=== PATIENT | female | born 1960 | race Asian ===

== ENCOUNTER 2022-07-19 16:19 | Inpatient (IN) | payer MEDICAID ==
[~2022-07-19] VITALS: Ht 147.3 cm; Wt 64.0 kg
[2022-07-19] MEDS ORDERED: MIDO2.5T PO (16:55)
[2022-07-19] MEDS ORDERED: MULT-447 PO (16:55)
[2022-07-19] MEDS ORDERED: CETI-108 PO (16:55)
[2022-07-19] MEDS ORDERED: FLUT16SP (16:55)
[2022-07-19] MEDS ORDERED: FLUT1BLS12 IH (16:55)
[2022-07-19] MEDS ORDERED: ALBU8.5H8 IH (16:55)
[2022-07-19] MEDS ORDERED: FENO160T PO (16:55)
[2022-07-19] MEDS ORDERED: OMEP20CA15 PO (16:55)
[2022-07-19] MEDS ORDERED: TORS20TA3 PO (16:55)
[2022-07-19] MEDS ORDERED: COLC0.6C3 PO (16:55)
[2022-07-19] MEDS ORDERED: SPIR25TA6 PO (16:55)
[2022-07-19] MEDS ORDERED: ALLO100T PO (16:55)
[2022-07-19] MEDS ORDERED: MONT10TA22 PO (16:55)
--- NOTE | 2022-07-19 16:55 | NUR ---
ADMISSION NOTE PATIENT ARRIVED VIA GURNEY ACCOMPANIED BY 2 EMT. REPORT GIVEN BY PATRICK MCKEON. PATIENT A/O X4, ABLE TO MAKE NEEDS KNOWN. CONTINENT: BRP. PATIENT ORIENTED TO ROOM AND CALL LIGHT. ON 2L NC, NO S/S OF SOB OR DISTRESS. IV ACCESS ON LAC , INTACT AND PATENT AND FLUSHING WELL. SKIN INTACT. BLE SWELLING, PITTING 2 AN L BREAST BRUISE. VS TAKEN AND RECORDED IN CHART. LUNG CLEAR AND BOWEL SOUNDS ACTIVE. NO PAIN AT THIS TIME. DR. HARDIN MADE AWARE OF PT ARRIVAL. FALL AND SAFETY PRECAUTION IN PLACE BED LOCKED AND AT THE LOWEST POSITION, SRx2, CALL LIGHT WITHIN REACH.
[2022-07-19] MEDS ORDERED: Z GUARD REMEDY 4 OZ OINT TP PRN (18:00)
[2022-07-19] MEDS ORDERED: ACETAMINOPHEN 325 MG TABLET PO PRN (18:00)
[2022-07-19] MEDS ORDERED: ONDANSETRON HCL/PF 4 MG/2 ML VIAL IVP PRN (18:00)
[2022-07-19] MEDS: ENOXAPARIN SODIUM 30 MG/0.3 ML DISP.SYRIN SQ SCH (18:00)
[2022-07-19] MEDS ORDERED: MAG HYDROX/AL HYDROX/SIMETH 30 ML UDC PO PRN (18:00)
[2022-07-19] MEDS ORDERED: FLUTICASONE PROPIONATE 16 GM BOTTLE NS PRN (18:00)
[2022-07-19] MEDS ORDERED: MAGNESIUM HYDROXIDE 30 ML UDC PO PRN (18:00)
--- NOTE | 2022-07-19 18:00 | NUR ---
MEDICATION NOTE HELD ENOXOPARIN, WAITING LAB VALUES
[2022-07-19 18:33] LABS: EOSINOPHILS % (AUTO) 0.9 % (0.0-6.0); HEMOGLOBIN 14.6 g/dL (11.5-14.8)
[2022-07-19 18:41] LABS: BASOPHILS # (AUTO) 0.2 K/uL (0.0-0.2); BASOPHILS % (AUTO) 0.8 % (0.0-2.0); HEMATOCRIT 47 % (33-45); LYMPHOCYTES # (AUTO) 2.3 K/uL (0.8-4.8); LYMPHOCYTES % (AUTO) 8.6 % (20.0-44.0); MEAN CORPUSCULAR HGB CONC 31 g/dl (31.0-36.0); MEAN CORPUSCULAR VOLUME 82 fL (82-100); MONOCYTES # (AUTO) 1.4 K/uL (0.1-1.30); NEUTROPHILS % (AUTO) 84.7 % (43.0-81.0); PLATELET COUNT (AUTO) 147 K/uL (150-450); RED BLOOD CELL COUNT(AUTO) 5.67 MIL/uL (4.0-5.2); WHITE BLOOD COUNT (AUTO) 27.2 K/uL (4.3-11.0)
[2022-07-19 18:55] VITALS: BP 92/69
[2022-07-19 19:07] LABS: BAND % (MANUAL) 4 % (0.0-5.0); LYMPHOCYTES % (MANUAL) 7 % (16-48); METAMYELOCYTES % 2 % (0-0); MONOCYTES % (MANUAL) 6 % (0-11.0); NEUTROPHILS % (MANUAL) 80 (42-76); REACTIVE LYMPHOCYTES 1 % (0-0)
[2022-07-19 19:08] LABS: ALANINE AMINOTRANSFERASE 32 U/L (12-78); ALBUMIN 3.9 g/dL (3.4-5.0); ALKALINE PHOSPHATASE 65 U/L (46-116); ASPARTATE AMINOTRANSFERASE 42 U/L (15-37); BILIRUBIN,DIRECT 0.9 mg/dL (0.0-0.2); BILIRUBIN,TOTAL 1.6 mg/dL (0.2-1.0); CARBON DIOXIDE 31 mmol/L (21-32); CHLORIDE 106 mmol/L (98-107); CREATININE 1.3 mg/dL (0.6-1.3); GLUCOSE 100 mg/dL (74-106); MAGNESIUM 2.6 mg/dL (1.8-2.4); PHOSPHORUS 4.5 mg/dL (2.5-4.9); POTASSIUM 4.2 mmol/L (3.5-5.1); SODIUM SERUM 143 mmol/L (136-145); UREA NITROGEN, BLOOD 59 mg/dL (7-18)
[2022-07-19 20:00] VITALS: BP 101/72
--- NOTE | 2022-07-19 20:00 | NUR ---
CLOSING NOTE PATIENT IN BED RESTING A/O X4, ON NC 2L. NO S/S OF SON OR DISTRESS. IV ACCESS LFA G 20 REMAINS INTACT AND PATIENT, SL. NO PAIN AT THIS TIME. FALL AND SAFETY PRECAUTION IN PLACE BED LOCKED AND AT THE LOWEST POSITION, SRx2, CALL LIGHT WITHIN REACH.
--- NOTE | 2022-07-19 20:00 | NUR ---
TELE DAY CARE ASSISTANT INITIAL NOTES RECEIVED REPORT FROM AM NURSE RISSA AND SEEN PT IN BED ON SITTING POSITION WITH SIDE RAILS X2 UP , AWARE WHERE SHE AT, SKIN WARM AND DRY TO TOUCH, EDEMA NOTED NO HER BLE . NO SIGNS OF ANY ACUTE DISTRESS NOTED. PT ON O2 AT 2 LITERS VIA NASAL CANULA. SHE ALSO ON TELE SINUS TACH PER MONITOR. KEPT HER WARM AND COMFORTABLE AT ALL TIMES. ENCOURAGE PT TO USE THE CALL LIGHT SYSTEM IF SHE NEEDS SOME HELP OR NEEDS THE NURSE. WILL CONTINUE MONITORING. CALL LIGHT AT REACH.
[2022-07-19] MEDS ORDERED: ALBUTEROL FS 2.5 MG/3 ML VIAL.NEB NEB PRN (20:30)
[2022-07-19] MEDS ORDERED: FUROSEMIDE 40 MG/4 ML VIAL IV SCH (21:00)
[2022-07-19] MEDS: MONTELUKAST SODIUM (10MG) 10 MG TABLET PO SCH (22:05)
[2022-07-20] VITALS: BP 89/64
--- NOTE | 2022-07-20 | NUR ---
TELE CRABBER NOTES PT SLEEPING AT THIS TIME RESPIRATION EVEN AND NON-LABORED NOT IN ANY ACUTE DISTRESS NOTED. TELE SINUS RHYTHM PER MONITOR. WILL CONTINUE MONITORING.
[2022-07-20] MEDS: ALBUTEROL FS 2.5 MG/3 ML VIAL.NEB NEB SCH ×5 (01:44→20:41)
[2022-07-20 04:00] VITALS: BP 96/69
[2022-07-20 07:00] VITALS: BP 89/63
--- NOTE | 2022-07-20 07:00 | NUR ---
TELE VALIDATION SCIENTIST CLOSING NOTES PT RESTING COMFORTABLY IN BED WITHOUT ANY DISCOMFORT . STABLE THROUGHOUT THE NIGHT STILL HAVE EDEMA BUT PATIENT SAID SHE FEEL BETTER . SHE STILL WITH O2 AT 2 LITERS VIA NASAL CANULA. TELE SINUS RHYTHM PER MONITOR. BED IN LOW AND LOCK IN POSITION WITH SIDE RAILS X2 UP . PLACE CALL LIGHT AT REACH. WILL ENDORSE TO AM NURSE FOR CONTINUITY OF CARE.
--- NOTE | 2022-07-20 07:20 | NUR ---
ms rn received on bed, awake,alert,oriented x4,not in any form of distress, respirations even and unlabored,no sob noted, lungs are both diminish, abdomen soft,positive bowel sounds,denies pian at this time, o2 2 liters, saturating well,denies pain at this time, all needs attended.
[2022-07-20 07:21] LABS: BASOPHILS # (AUTO) 0.3 K/uL (0.0-0.2); BASOPHILS % (AUTO) 1.4 % (0.0-2.0); EOSINOPHILS % (AUTO) 1.1 % (0.0-6.0); HEMATOCRIT 44 % (33-45); HEMOGLOBIN 13.6 g/dL (11.5-14.8); LYMPHOCYTES # (AUTO) 1.9 K/uL (0.8-4.8); MEAN CORPUSCULAR HGB CONC 31 g/dl (31.0-36.0); MEAN CORPUSCULAR VOLUME 83 fL (82-100); MONOCYTES # (AUTO) 1.2 K/uL (0.1-1.30); NEUTROPHILS # (AUTO) 20.6 K/uL (1.8-8.9); NEUTROPHILS % (AUTO) 84.5 % (43.0-81.0); PLATELET COUNT (AUTO) 135 K/uL (150-450); RED BLOOD CELL COUNT(AUTO) 5.38 MIL/uL (4.0-5.2); WHITE BLOOD COUNT (AUTO) 24.4 K/uL (4.3-11.0)
[2022-07-20 08:40] LABS: CALCIUM, SERUM 9.5 mg/dL (8.5-10.1); CREATININE 1.4 mg/dL (0.6-1.3); MAGNESIUM 2.7 mg/dL (1.8-2.4); PHOSPHORUS 5.2 mg/dL (2.5-4.9); POTASSIUM 4.6 mmol/L (3.5-5.1)
[2022-07-20] MEDS: BUDESONIDE RESPULE INH 0.5 MG/2 ML AMPUL.NEB IH SCH ×2 (08:55→20:40)
--- NOTE | 2022-07-20 09:30 | NUR ---
ms rn was seen by dr. dunn,w/ orders made and carried out.
[2022-07-20] MEDS: COLCHICINE 0.6 MG TABLET PO SCH (09:58)
[2022-07-20] MEDS: SPIRONOLACTONE 25 MG TABLET PO SCH (09:58)
[2022-07-20] MEDS: MULTIVIT W/MINERALS 1 TAB TABLET PO SCH (09:58)
[2022-07-20] MEDS: FENOFIBRATE NANOCRYS (145 MG) 145 MG TABLET PO SCH (09:59)
[2022-07-20] MEDS: cetrizine 10 MG TABLET PO SCH (09:59)
[2022-07-20] MEDS: PANTOPRAZOLE 40 MG TABLET.DR PO SCH (10:00)
[2022-07-20] MEDS: ALLOPURINOL 100 MG TABLET PO SCH (10:00)
[2022-07-20] MEDS: MIDODRINE HCL (5MG) 5 MG TABLET PO SCH (10:00)
--- NOTE | 2022-07-20 10:00 | NUR ---
ms rn was seen by dr. pichardo w/ orders made and carried out,
[2022-07-20 12:00] VITALS: BP 93/66
[2022-07-20 15:58] VITALS: BP 111/66
--- NOTE | 2022-07-20 16:00 | NUR ---
ms rn ct chest done w/ result, aware,all needs attended.
[2022-07-20] MEDS: ENOXAPARIN SODIUM 30 MG/0.3 ML DISP.SYRIN SQ SCH (17:54)
--- NOTE | 2022-07-20 18:33 | NUR ---
ms rn on bed, all nedds attended,no distress noted.
--- NOTE | 2022-07-20 19:29 | NUR ---
RN OPENING NOTE PATIENT AWAKE IN BED. A/OX4. NO S/S OF DISTRESS, BREATHING WITHOUT DIFFICULTY ON 2L NC. LFA #20 HL INTACT AND PATENT. TELE READS SR 96 (WITHIN PATIENT'S BASELINE). SAFETY MEASURES IN PLACE: BED LOCKED AND AT LOWEST POSITION, RAILS UP X2, CALL CROUCH WITHIN REACH. WILL CONTINUE TO MONITOR PATIENT.
[2022-07-20 20:00] VITALS: BP 92/66
[2022-07-20] MEDS: MONTELUKAST SODIUM (10MG) 10 MG TABLET PO SCH (21:17)
[2022-07-21] VITALS: BP 92/63
[2022-07-21] MEDS: ALBUTEROL FS 2.5 MG/3 ML VIAL.NEB NEB SCH ×4 (02:23→20:08)
[2022-07-21 04:00] VITALS: BP 90/65
--- NOTE | 2022-07-21 06:35 | NUR ---
RN CLOSING NOTE PATIENT ASLEEP IN BED. A/OX4. NO S/S OF DISTRESS, BREATHING WITHOUT DIFFICULTY ON 2L NC. LFA #20 HL INTACT AND PATENT. TELE READS SR 73. SAFETY MEASURES IN PLACE: BED LOCKED AND AT LOWEST POSITION, RAILS UP X2, CALL CROUCH WITHIN REACH. WILL ENDORSE TO NEXT SHIFT FOR ALEJANDRA.
[2022-07-21 06:43] LABS: BASOPHILS # (AUTO) 0.2 K/uL (0.0-0.2); BASOPHILS % (AUTO) 0.8 % (0.0-2.0); EOSINOPHILS % (AUTO) 1.3 % (0.0-6.0); HEMATOCRIT 46 % (33-45); HEMOGLOBIN 13.9 g/dL (11.5-14.8); LYMPHOCYTES # (AUTO) 2.2 K/uL (0.8-4.8); LYMPHOCYTES % (AUTO) 9.1 % (20.0-44.0); MEAN CORPUSCULAR HGB CONC 31 g/dl (31.0-36.0); MEAN CORPUSCULAR VOLUME 83 fL (82-100); MONOCYTES # (AUTO) 1.3 K/uL (0.1-1.30); MONOCYTES % (AUTO) 5.2 % (2.0-12.0); NEUTROPHILS # (AUTO) 20.4 K/uL (1.8-8.9); NEUTROPHILS % (AUTO) 83.6 % (43.0-81.0); PLATELET COUNT (AUTO) 132 K/uL (150-450); WHITE BLOOD COUNT (AUTO) 24.4 K/uL (4.3-11.0)
[2022-07-21 06:50] LABS: CALCIUM, SERUM 9.5 mg/dL (8.5-10.1); CREATININE 1.1 mg/dL (0.6-1.3); POTASSIUM 4.5 mmol/L (3.5-5.1)
[2022-07-21 06:51] LABS: MAGNESIUM 2.9 mg/dL (1.8-2.4); PHOSPHORUS 4.1 mg/dL (2.5-4.9)
--- NOTE | 2022-07-21 07:40 | NUR ---
GAS ANALYST OPENING NOTES: RECEIVED PATIENT AWAKE IN BED, A/OX4, ABLE TO MAKE NEEDS KNOWN. PT IS ON 2L VIA NC, WITH NO S/S OF SOB OR ACUTE DISTRESS NOTED. IV ACCESS AT LFA #20, HL INTACT AND PATENT. TELE MONITOR READS SR, HR= 75. ALL SAFETY MEASURES IN PLACE: BED LOCKED AND AT LOWEST POSITION, RAILS UP X2. CALL LIGHT AND TABLE WITHIN EASY REACH, WILL CONTINUE WITH PLAN OF CARE DURING SHIFT.
[2022-07-21 08:00] VITALS: BP 131/108
[2022-07-21] MEDS: PANTOPRAZOLE 40 MG TABLET.DR PO SCH (08:34)
[2022-07-21] MEDS: MULTIVIT W/MINERALS 1 TAB TABLET PO SCH (08:34)
[2022-07-21] MEDS: cetrizine 10 MG TABLET PO SCH (08:34)
[2022-07-21] MEDS: COLCHICINE 0.6 MG TABLET PO SCH (08:35)
[2022-07-21] MEDS: FENOFIBRATE NANOCRYS (145 MG) 145 MG TABLET PO SCH (08:35)
[2022-07-21] MEDS: SPIRONOLACTONE 25 MG TABLET PO SCH (08:35)
[2022-07-21] MEDS: MIDODRINE HCL (5MG) 5 MG TABLET PO SCH ×2 (08:36→16:16)
[2022-07-21] MEDS: ALLOPURINOL 100 MG TABLET PO SCH (08:37)
--- NOTE | 2022-07-21 09:00 | NUR ---
RN NOTES HELD MIDODRINE, 0800 BP= 131/108
[2022-07-21] MEDS: BUDESONIDE RESPULE INH 0.5 MG/2 ML AMPUL.NEB IH SCH ×2 (09:38→20:34)
[2022-07-21 12:00] VITALS: BP 97/70
[2022-07-21] MEDS: FUROSEMIDE 20 MG/2 ML VIAL IV SCH ×2 (13:31→17:03)
--- NOTE | 2022-07-21 15:22 | NUR ---
RN NOTES: VP MEDICAL CONSULT PLACED FOR PT TO HELP WITH IHHS AND IRIS FRESH RESOURCES
[2022-07-21 16:00] VITALS: BP 91/65
--- NOTE | 2022-07-21 16:36 | NUR ---
PATRICK NOTES: MIDODRINE HELD AT 0800- AM DUE TO ELEVATED BP= 131/108 MIDODRINE ADMINISTERED AT PM FOR LOW BP= 91/65 (1600)
[2022-07-21] MEDS: ENOXAPARIN SODIUM 30 MG/0.3 ML DISP.SYRIN SQ SCH (17:05)
--- NOTE | 2022-07-21 18:26 | NUR ---
GYM ATTENDANT CLOSING NOTES; PATIENT AWAKE IN BED, A/OX4, ABLE TO MAKE NEEDS KNOWN. SPEAKS GUINEAN AND TAGALOG. PT IS ON 2L OF O2 VIA NC, WITH NO S/S OF SOB OR ACUTE DISTRESS NOTED. IV ACCESS AT LFA #20, SL, INTACT AND PATENT. TELE MONITOR READS SR, HR= 79. DUE MEDS GIVEN, NEEDS MET. ALL SAFETY MEASURES IN PLACE: BED LOCKED AND AT LOWEST POSITION, RAILS UP X2. CALL LIGHT AND TABLE WITHIN EASY REACH, WILL ENDORSE TO PM SHIFT.
--- NOTE | 2022-07-21 19:30 | NUR ---
FONDANT MACHINE OPERATOR OPENING NOTES - RECEIVED PATIENT SITTING ON BEDSIDE. A/O X4. BREATHING EVEN AND NON-LABORED, ON O2 AT 2LPM VIA NASAL CANULA. NOT IN ACUTE DISTRESS. NO C/O PAIN OR DISCOMFORT AT THIS TIME. ON TELE MONITOR READING SINUS RHYTHM AT 79 BPM. HAS LEFT FOREARM IV ACCESS #20G AND SALINE LOCKED. NO S/S OF INFILTRATION NOTED. PATIENT EDUCATION GIVEN ON FLUID RESTRICTIONS AND MONITORING OF INTAKE AND OUTPUT. SAFETY PRECAUTIONS IN PLACE: BED LOCKED AND IN LOW POSITION, SIDE RAILS UP X2, CALL LIGHT WITHIN REACH. WILL CONTINUE PLAN OF CARE.
[2022-07-21 20:00] VITALS: BP 94/60
[2022-07-21] MEDS: MONTELUKAST SODIUM (10MG) 10 MG TABLET PO SCH (21:54)
--- NOTE | 2022-07-21 22:10 | NUR ---
RCVD PT ON 2L NC AND PLACED PT ON NOC CPAP 8 , FIO2 30%. PT IS ALERT AND AWAKE , NO RESPIRATORY DISTRESS NOTED AT THIS TIME. WILL CONTINUE TO MONITOR T/O SHIFT.
--- NOTE | 2022-07-21 23:11 | NUR ---
RECEIVED CALL FROM CAROLE OF [facility] TRANSFER [facility]ENTER REQUESTING FOR UPDATES ON THE PATIENT. INFORMED HER THAT PATIENT IS A/O X4, VS WNL, SATURATING AT 97% ON 2LPM AND ON NOCTURNAL CPAP, AND CM CONTACTED 2 OTHER HOSPITALS. THEY WILL CALL [facility] CM TO GIVE AN UPDATE ON THE TRANSFER REQUEST.
[2022-07-22] VITALS: BP 98/69
[2022-07-22] MEDS: ALBUTEROL FS 2.5 MG/3 ML VIAL.NEB NEB SCH ×4 (01:08→20:00)
--- NOTE | 2022-07-22 03:45 | NUR ---
OFF BIPAP PER PT REQUEST. PLACED ON 2L NC. NO RESPIRATORY DISTRESS NOTED AT THIS TIME. WILL CONTINUE TO MONITOR T/O SHIFT
[2022-07-22 04:00] VITALS: BP 91/68
[2022-07-22 06:27] LABS: BASOPHILS # (AUTO) 0.2 K/uL (0.0-0.2); BASOPHILS % (AUTO) 1.1 % (0.0-2.0); EOSINOPHILS % (AUTO) 1.6 % (0.0-6.0); HEMATOCRIT 44 % (33-45); HEMOGLOBIN 13.5 g/dL (11.5-14.8); LYMPHOCYTES # (AUTO) 2.3 K/uL (0.8-4.8); LYMPHOCYTES % (AUTO) 10.8 % (20.0-44.0); MEAN CORPUSCULAR HGB CONC 31 g/dl (31.0-36.0); MEAN CORPUSCULAR VOLUME 83 fL (82-100); MONOCYTES # (AUTO) 1.1 K/uL (0.1-1.30); MONOCYTES % (AUTO) 5.3 % (2.0-12.0); NEUTROPHILS # (AUTO) 17.6 K/uL (1.8-8.9); NEUTROPHILS % (AUTO) 81.2 % (43.0-81.0); PLATELET COUNT (AUTO) 138 K/uL (150-450); RED BLOOD CELL COUNT(AUTO) 5.33 MIL/uL (4.0-5.2); WHITE BLOOD COUNT (AUTO) 21.6 K/uL (4.3-11.0)
--- NOTE | 2022-07-22 06:43 | NUR ---
COMMERCIAL FISHERMAN CLOSING NOTES - PATIENT RESTING, ABLE TO VERBALIZE NEEDS. KEPT HOB ELEVATED. NO C/O SOB OR , SATURATING AT 94-95% ON ROOM AIR. ENCOURAGED TO USE O2 FOR COMFORT, PATIENT AGREED. AFEBRILE. TELE MONITOR SHOWS SINUS RHYTHM AT 67-87 BPM. LEFT FOREARM IV ACCESS INTACT, PATENT AND FLUSHING. ELEVATED LOWER EXTREMITIES. ALL DUE MEDS GIVEN AND NEEDS ATTENDED. SAFETY PRECAUTIONS MAINTAINED. WILL ENDORSE TO NEXT SHIFT RN FOR ALEJANDRA.
[2022-07-22 06:44] LABS: CALCIUM, SERUM 8.5 mg/dL (8.5-10.1); CREATININE 1.2 mg/dL (0.6-1.3)
--- NOTE | 2022-07-22 07:40 | NUR ---
MIDDLE SCHOOL PE TEACHER OPENING NOTES RECEIVED PATIENT RESTING IN BED, ALERT/ORIENTED X4, ABLE TO VERBALIZE NEEDS. KEPT HOB ELEVATED. NO C/O SOB OR , SATURATING WELL ON ROOM AIR. ENCOURAGED TO USE O2 FOR COMFORT, PATIENT AGREED. AFEBRILE. TELE MONITOR SHOWS SINUS RHYTHM AT 87 BPM. LEFT FOREARM #20G SLAINE LOCK, IV ACCESS INTACT, PATENT AND FLUSHING. ELEVATED LOWER EXTREMITIES. ALL DUE MEDS GIVEN AND NEEDS ATTENDED. SAFETY PRECAUTIONS MAINTAINED. BED LOCKED IN LOWEST POSITION, SIDE RAILS UP X2, CALL LIGHT WITHIN REACH. WILL ADMINISTER ALL DUE MEDS ORDERED AND CONTINUE TO MONITOR.
[2022-07-22 08:00] VITALS: BP 118/68
[2022-07-22] MEDS: SPIRONOLACTONE 25 MG TABLET PO SCH (08:46)
[2022-07-22] MEDS: ALLOPURINOL 100 MG TABLET PO SCH (08:47)
[2022-07-22] MEDS: MULTIVIT W/MINERALS 1 TAB TABLET PO SCH (08:47)
[2022-07-22] MEDS: cetrizine 10 MG TABLET PO SCH (08:47)
[2022-07-22] MEDS: PANTOPRAZOLE 40 MG TABLET.DR PO SCH (08:47)
[2022-07-22] MEDS: MIDODRINE HCL (5MG) 5 MG TABLET PO SCH (08:48)
[2022-07-22] MEDS: FENOFIBRATE NANOCRYS (145 MG) 145 MG TABLET PO SCH (08:48)
[2022-07-22] MEDS: COLCHICINE 0.6 MG TABLET PO SCH (08:48)
[2022-07-22] MEDS: FUROSEMIDE 20 MG/2 ML VIAL IV SCH ×2 (08:48→17:00)
[2022-07-22] MEDS: BUDESONIDE RESPULE INH 0.5 MG/2 ML AMPUL.NEB IH SCH ×3 (09:00→20:12)
[2022-07-22 12:00] VITALS: BP 88/64
[2022-07-22 16:00] VITALS: BP 98/73
--- NOTE | 2022-07-22 17:00 | NUR ---
RN NOTES LASIX HELD PER MD ORDER IF BP IS LOW. BP IS 98/73.
[2022-07-22] MEDS: ENOXAPARIN SODIUM 30 MG/0.3 ML DISP.SYRIN SQ SCH (18:31)
--- NOTE | 2022-07-22 19:06 | NUR ---
SCIENTIFIC ASSOCIATE CLOSING NOTES PATIENT SITTING IN BED, ALERT/ORIENTED X4, ABLE TO VERBALIZE NEEDS. KEPT HOB ELEVATED. NO C/O SOB OR , SATURATING WELL ON ROOM AIR. ENCOURAGED TO USE O2 FOR COMFORT, PATIENT AGREED. AFEBRILE. TELE MONITOR SHOWS SINUS RHYTHM AT 85 BPM. LEFT FOREARM #20G SLAINE LOCK, IV ACCESS INTACT, PATENT AND FLUSHING. ELEVATED LOWER EXTREMITIES. ALL DUE MEDS GIVEN AND NEEDS ATTENDED. SAFETY PRECAUTIONS MAINTAINED. BED LOCKED IN LOWEST POSITION, SIDE RAILS UP X2, CALL LIGHT WITHIN REACH. WILL TRANSFER TO [facility] FOR HIGHER LEVEL OF CARE. DC SUMMARY FAXED BY CHARGE NURSE. WILL ENDORSE TO NEXT SHIFT
--- NOTE | 2022-07-22 19:20 | NUR ---
BOAT RIGGER OPENING NOTES - RECEIVED PATIENT AWAKE. A/O X4. NO RESPIRATORY OR CARDIAC DISTRESS NOTED. ON O2 AT 2LPM VIA NASAL CANULA. DENIES PAIN. ON TELE MONITOR READING SINUS RHYTHM AT 90 BPM. HAS LEFT FOREARM IV ACCESS #20G AND SALINE LOCKED. NO S/S OF INFILTRATION NOTED. AWAITING FOR TRANSFER TO [facility]. SAFETY PRECAUTIONS IN PLACE: BED LOCKED AND IN LOW POSITION, SIDE RAILS UP X2, CALL LIGHT WITHIN REACH. WILL CONTINUE PLAN OF CARE.
[2022-07-22 20:00] VITALS: BP 96/63
--- NOTE | 2022-07-22 21:00 | NUR ---
RECEIVED CALL FROM REINIER OF PATIENT PLACEMENT ADVISING THAT THERE IS ALREADY AN AVAILABLE BED. PATIENT IS GOING TO [id number]. [address]ESS [id number] [place] [address].
[2022-07-22] MEDS: MONTELUKAST SODIUM (10MG) 10 MG TABLET PO SCH (21:18)
--- NOTE | 2022-07-22 21:47 | NUR ---
GAVE REPORT TO KENNY NGUYEN OF [facility]. AMBULANCE ETA IS 2300. PATIENT AWARE. Addendum: 07/22/22 at 2206 by July KAI NGUYEN RECEIVED CALL FROM NESHA OF [facility] ADVISING PATIENT HAS BEEN CLEARED FINANCIALLY BUT STILL AWAITING FOR AN ACCEPTING MD. INFORMED HER THAT PATIENT WILL BE TRANSFERRED TONIGHT TO [facility].
--- NOTE | 2022-07-22 22:42 | NUR ---
WINDOWS SERVER SUPPORT TECHNICIAN CLOSING NOTES - PATIENT SITTING ON CHAIR, BREATHING EVEN AND NON-LABORED ON O2 AT 2LPM. NO C/O PAIN OR DISCOMFORT. AFEBRILE. REMOVED LEFT FOREARM IV ACCESS PER KENNY NGUYEN. ABLE TO USE THE BATHROOM ALONE. REMOVED TELE BOX. ALL BELONGINGS GIVEN TO PATIENT, SIGNED FORM. DISCHARGE INSTRUCTIONS PROVIDED, VERBALIZED UNDERSTANDING. PICKED UP BY ONE MALE AND ONE FEMALE PARAMEDICS. PATIENT LEFT VIA GURNEY IN STABLE CONDITION @ 2234. Addendum: 07/22/22 at 2250 by July KAI NGUYEN WINDOWS SERVER SUPPORT TECHNICIANCREDIT OR LOANS OFFICER NOTES
== END 2022-07-22 22:40 | disposition short-term general hospital (02) | DRG 194 ==
LOC: TELE 16:19
PROVIDERS: ADMIT Internal Medicine; ATTEND Internal Medicine
PROC: 5A09457 Assistance with Respiratory Ventilation, 24-96 Consecutive Hours, Continuous Positive Airway Pressure (ICD-10-PCS; principal; 2022-07-21)
DX: I11.0 Hypertensive heart disease with heart failure (principal); J96.01 Acute respiratory failure with hypoxia; G47.33 Obstructive sleep apnea (adult) (pediatric); E11.9 Type 2 diabetes mellitus without complications; J45.909 Unspecified asthma, uncomplicated; Z79.51 Long term (current) use of inhaled steroids; Z79.899 Other long term (current) drug therapy; M10.9 Gout, unspecified; R79.89 Other specified abnormal findings of blood chemistry; R60.9 Edema, unspecified; D75.81 Myelofibrosis; I50.23 Acute on chronic systolic (congestive) heart failure; Z87.891 Personal history of nicotine dependence; I27.20 Pulmonary hypertension, unspecified
CPT/HCPCS: 36415; 71045-TC; 71250-TC; 80048-TC; 80076-TC; 83735-TC; 84100-TC; 84484-TC; 85025-TC; 87081-TC; 93307-TC; 93970-TC; 94799-TC; G0378; J1650; J1940